=== PATIENT | female | born 1940 | race Caucasian/White ===

== ENCOUNTER → 2016-08-01 | Outpatient (CLI) | payer OTHER, MEDICARE ==
[~2016-08-01] MED LIST: ALEVE220 MG PO; ASPIR 8181 MG PO; CLEOCIN HCL150 MG PO; COLACE 100 MG100 MG PO; CRESTOR10 MG PO; ELIQUIS5 MG PO; FLEXERIL PO; IRON325 PO; LEVOTHYROXINE 0.1 MG PO; LOSARTAN POTAS100 MG PO; METFORMIN HCL1000 M1 PO; METFORMIN HCL500 MG PO; METOPROLOL SUCC50 MG PO; NORCO 10-325 T1 EACH PO; VITAMIN D-32000 UNIT PO; ZANTAC 150MG T150 MG PO
--- NOTE | ~2016-08-01 | CNG ---
[facility] [place] [address] CYTO-NONGYN REPORT PROCEDURE Name: EMILIE VARGAS [id number] Admission: 08/01/16 Date of : 36 Discharge: Report #: [id number] Path Case #: [id number] CYTOPATHOLOGY REPORT COLLECTION DATE: 08/01/2016 RECEIVED DATE: 08/01/2016 SUBMITTING PHYS: Dr. Joni Jaquez OTHER PHYS: Dr. Mildred Mclain CLINICAL HISTORY: Submandibular neck mass SPECIMEN(S) RECEIVED: A.US guided Fine needle aspiration, Left neck cyst * * * * * * * * * * * * FINAL DIAGNOSIS: A. Left neck cyst, US guided Fine needle aspiration: - No malignant cells identified. Anucleate cellular elements consistent with cyst contents. PATHOLOGIST: Cassidy Gage M.D. REPORT ELECTRONICALLY SIGNED BY: Cassidy Gage M.D. DATE/TIME: 08/02/2016 13:05 * * * * * * * * * * * * GROSS PATHOLOGY: A. US guided Fine needle aspiration, Left neck cyst: The specimen is labeled "Emilie Vargas". One mL of cloudy pink fluid. One ThinPrep slide and cell block were prepared from this material. (mm 08.01.2016) COAL HANDLER(S): Tashia Meeks, ELIUD(ASCP), IAC INITIAL CPT CODE(S): A; 59157, [id number] Professional services performed by [facility] at [facility] [address], [place] [address] Technical services performed by [facility] at [address] [place] [address]., [address], [place] [address]. [facility] [address] [place] [address], [address] [place] [address] PHONE: [phone] [facility] [address] [place] [address] CYTO-NONGYN REPORT PROCEDURE Name: EMILIE VARGAS Room #: REG MELANIA Rinaldi#: [id number] Admission: 08/01/16 Date of : 36 Discharge: Report #: [id number] Path Case #: [id number] DIRECTOR: See Golden M.D. * * * END OF REPORT * * *
== END | disposition home or self-care (01) ==
LOC: ULTRA 08:51
DX: L72.9 Follicular cyst of the skin and subcutaneous tissue, unspecified (principal)

== ENCOUNTER → 2017-07-10 | Outpatient (CLI) | payer OTHER, MEDICARE | LOC: RAD 10:12 | DX: Z12.31 Encounter for screening mammogram for malignant neoplasm of breast (principal) ==

== ENCOUNTER 2017-09-15 16:13 | Emergency (ER) | payer OTHER, MEDICARE ==
[~2017-09-15] VITALS: Ht 157.5 cm; Wt 77.1 kg
[2017-09-15 17:44] LABS: CALCIUM 9.1 mg/dL (8.5-10.1); CREATININE 0.8 mg/dL (0.6-1.0)
[2017-09-15] MEDS ORDERED: HYDROCODONE-AP1 EAC6 PO (18:40)
== END 2017-09-15 19:00 | disposition home or self-care (01) ==
LOC: ER 16:13
PROVIDERS: Physician Assistant
DX: S20.211A Contusion of right front wall of thorax, initial encounter (principal); I10 Essential (primary) hypertension; G89.29 Other chronic pain; M54.9 Dorsalgia, unspecified; K21.9 Gastro-esophageal reflux disease without esophagitis; E03.9 Hypothyroidism, unspecified; E11.9 Type 2 diabetes mellitus without complications; E78.00 Pure hypercholesterolemia, unspecified; I48.91 Unspecified atrial fibrillation; Z85.828 Personal history of other malignant neoplasm of skin; Z96.653 Presence of artificial knee joint, bilateral; Z88.0 Allergy status to penicillin; Z88.8 Allergy status to other drugs, medicaments and biological substances; V43.52XA Car driver injured in collision with other type car in traffic accident, initial encounter; Y93.I9 Activity, other involving external motion; Y92.89 Other specified places as the place of occurrence of the external cause; Y99.8 Other external cause status